=== PATIENT | male | born 1990 | race African-American/Black ===

== ENCOUNTER 2016-03-17 09:49 | Emergency (ER) | payer SELFPAY ==
[~2016-03-17] VITALS: Ht 193 cm; Wt 74.4 kg
[~2016-03-17 09:49] MED LIST: ACETAMINOPHEN-1 EAC1 PO; ALBUTEROL SULF8.5 GM INH; ALBUTEROL2.5 MG/3 M INH; AMOXICILLIN500 MG PO; AZITHROMYCIN250 MG ORAL; CYCLOBENZAPRINE10 MG ORAL; IBUPROFEN600 MG ORAL; NORCO 10/3251 EA ORAL; NORCO 5-325 TA1 EACH ORAL; PHENAZOPYRIDIN100 MG ORAL; PREDNISONE20 MG ORAL; PROAIR HFA8.5 GM INH; PROMETHAZINE-C118 M1 ORAL; ZITHROMAX250 MG ORAL
[2016-03-17] MEDS ORDERED: NKM (10:01)
[2016-03-17] MEDS ORDERED: Norco 5mg/325mg tab PO ONE (10:15)
--- NOTE | 2016-03-17 11:12 | Diagnostic Imaging Report ---
Indication: pain Findings: 3 views of the right hand were obtained. There is a fracture of the distal radius in the area of the radial styloid. The fracture extends through the metaphyseal region. Fracture is intra-articular and slightly comminuted. There is a post fracture deformity of the fifth metacarpal but this appears old. Impression: Nondisplaced comminuted intra-articular fracture of the distal radius.
[2016-03-17 11:17] VITALS: BP 124/73
[2016-03-17] MEDS ORDERED: NORCO 5-325 TA1 EACH ORAL (11:17)
[2016-03-17] MEDS ORDERED: IBUPROFEN600 MG ORAL (11:17)
[2016-03-17 11:19] VITALS: BP 124/73
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
--- NOTE | 2016-03-20 08:29 | Diagnostic Imaging Report ---
Indication: Pain Findings: 3 views of the right wrist were obtained. There is acute intra-articular fracture of the distal radius.. The fracture is primarily transverse but portion of the fracture extends into the radioscaphoid joint. There is also a distal radial ulnar joint involvement. There is a fracture of the ulnar styloid as well. Impression: Comminuted fracture of the distal radius
== END 2016-03-17 12:19 | disposition home or self-care (01) ==
LOC: EMR 10:36
DX: S52.571A Other intraarticular fracture of lower end of right radius, initial encounter for closed fracture (principal); W22.8XXA Striking against or struck by other objects, initial encounter; Y92.9 Unspecified place or not applicable; J45.909 Unspecified asthma, uncomplicated
CPT/HCPCS: 29125

== ENCOUNTER 2016-04-12 11:51 | Emergency (ER) | payer SELFPAY ==
[~2016-04-12] VITALS: Ht 193 cm; Wt 74.8 kg
[~2016-04-12 11:51] MED LIST changes: +NKM
[2016-04-12 11:59] VITALS: BP 128/71
--- NOTE | 2016-04-12 12:24 | Emergency Room Report ---
History of Present Illness General Chief Complaint: Pain Source: Patient Present Illness HPI The patient is a 25-year-old male presenting for pain of the right wrist and penile discharge. The patient was seen in this emergency department 3 weeks prior for a fracture of the right distal radius and ulna. The patient was placed in a volar splint and told to followup with orthopedics as soon as possible. The patient states that he has not followed up with orthopedics because he is afraid of surgery. The patient states that the splint became wet two days prior and warped. The patient states the pain has decreased and is now a 5/10 dull ache. Pain worse with movement of the wrist. The patient denies numbness or tingling of the wrist or hand. The patient also presents for one-day of penile discharge. The patient states that he noticed a white to yellow thick discharge which occurred once last night. Patient states she has not been sexually active recently. The patient denies dysuria, hematuria, testicular pain, abdominal pain, nausea, vomiting, fever, chills Allergies: Coded Allergies: No Known Allergies (Unverified , 09/20/15) Patient History Past Medical History: see triage record Pertinent Family History: none Reviewed Nursing Documentation: PMH: Agreed, PSxH: Agreed Nursing Documentation-PMH Past Medical History: No Stated History Hx Asthma: Yes Review of Systems All Other Systems: negative except mentioned in HPI Physical Exam Vital Signs Date Time Temp Pulse Resp B/P Pulse Ox O2 Delivery O2 Flow Rate FiO2 04/12/16 11:59 97.7 81 14 128/71 95 Room Air Sp02 EP Interpretation: reviewed, normal General Appearance: no apparent distress, alert, GCS 15, non-toxic Head: normocephalic, atraumatic Eyes: bilateral eye PERRL, bilateral eye normal inspection Respiratory: chest non-tender, lungs clear, normal breath sounds, speaking full sentences Cardiovascular #1: regular rate, rhythm, no edema Gastrointestinal: normal bowel sounds, non tender, soft, non-distended, no guarding, no rebound Rectal: deferred Genitourinary: normal inspection, no CVA tenderness, penis normal, scrotum normal Musculoskeletal: back normal, digits/nails normal, gait/station normal, decreased range of motion - R wrist, swelling - Mild edema over wrist, tender - TTP over distal radius/ulna Neurologic: alert, oriented x3, responsive, motor strength/tone normal, sensory intact, speech normal Psychiatric: judgement/insight normal, memory normal, mood/affect normal, no suicidal/homicidal ideation Skin: normal color, no rash, warm/dry, well hydrated Lymphatic: no adenopathy Procedures Splinting Splinting : Consent: Verbal Location: R wrist Pre-Made Type: metal Splint: volar Pre-Proc Neuro Vasc Exam: normal Post-Proc Neuro Vasc Exam: normal Patient Tolerated: Well Complications: None Medical Decision Making PA Attestation Dr. Meyers is my supervising physician. Patient management was discussed with my supervising physician Diagnostic Impression: Primary Impression: Wrist fracture ER Course 25-year-old male presenting for re splinting of right wrist fracture and possible STD. Ddx considered include but not limited to sprain/strain, fracture, contusion, compartment syndrome, cellultitis Differential diagnosis considered but not limited to: UTI, pyelonephritis, STD PE: Vitals within normal limits. No apparent distress Right wrist: Limited active range of motion. Minimal edema primarily over lateral wrist. Full active range of motion of fingers. Sensation intact to light touch. Skin intact. no erythema. No ecchymosis. Splint applied to R arm/wrist. UA unremarkable. Patient will be NV'ed home and will FU with orthopedics. Laboratory Tests Test 04/12/16 12:35 Urine Color Yellow Urine Appearance Clear Urine pH 5.0 (4.5-8.0) Urine Specific [place] 1.020 (1.005-1.035) Urine Protein Negative (NEGATIVE) Urine Glucose (UA) Negative (NEGATIVE) Urine Ketones Negative (NEGATIVE) Urine Occult Blood Negative (NEGATIVE) Urine Nitrite Negative (NEGATIVE) Urine Bilirubin Negative (NEGATIVE) Urine Urobilinogen Normal MG/DL (0.0-1.0) Urine Leukocyte Esterase Negative (NEGATIVE) Lab Results Impression No signs of infection Last Vital Signs Date Time Temp Pulse Resp B/P Pulse Ox O2 Delivery O2 Flow Rate FiO2 04/12/16 11:59 97.7 81 14 128/71 95 Room Air Status: improved Disposition: HOME, SELF-CARE Condition: Improved IAM GONZALEZ Apr 12, 2016 12:24
[2016-04-12 12:50] LABS: APPEARANCE,URINE CLEAR; KETONES,URINE NEGATIVE (NEGATIVE); LEUKOCYTE ESTERASE ,URINE NEGATIVE (NEGATIVE); NITRITE,URINE NEGATIVE (NEGATIVE); PROTEIN,URINE NEGATIVE (NEGATIVE); UROBILINOGEN,URINE NORMAL MG/DL (0.0-1.0)
[2016-04-12 13:05] VITALS: BP 117/75
== END 2016-04-12 13:05 | disposition home or self-care (01) ==
LOC: EMR 12:25
DX: S62.101D Fracture of unspecified carpal bone, right wrist, subsequent encounter for fracture with routine healing (principal); J45.909 Unspecified asthma, uncomplicated
CPT/HCPCS: 29260; 81003; 99283

== ENCOUNTER 2018-06-10 01:02 | Emergency (ER) | payer BC, MEDICAID ==
[~2018-06-10] VITALS: Ht 190.5 cm; Wt 79.4 kg
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
== END 2018-06-10 02:00 | disposition left against medical advice (07) ==
LOC: EMR 01:49
DX: S89.92XA Unspecified injury of left lower leg, initial encounter (principal); J45.909 Unspecified asthma, uncomplicated; Y09 Assault by unspecified means
CPT/HCPCS: 99281

== ENCOUNTER 2018-12-23 21:52 | Emergency (ER) | payer BC, MEDICAID, OTHER ==
[~2018-12-23] VITALS: Ht 195.6 cm; Wt 70.8 kg
[2018-12-23 22:15] VITALS: BP 123/80
--- NOTE | 2018-12-23 22:16 | NUR ---
ED Nurse Note: Patient walked in to ER due to spider bites. Stated that saw spider. AAOx4, VSS at this time, skin is dry warm to touch.
[2018-12-23] MEDS ORDERED: Bactrim-DS 1 tab ORAL ONE (22:30)
[2018-12-23] MEDS ORDERED: IBUPROFEN600 MG ORAL (22:52)
[2018-12-23] MEDS ORDERED: BACTRIM DS TAB1 EAC1 ORAL (22:52)
[2018-12-23] MEDS ORDERED: MUPIROCIN22 GM TOPIC (22:52)
--- NOTE | 2018-12-23 22:53 | Emergency Room Report ---
History of Present Illness General Chief Complaint: Skin Rash/Abscess Source: Patient, Medical Record Present Illness HPI This is a 28-year-old male with no past medical history. He presents with chief complaint of a spider bite to his lip. Onset for last couple days. He noticed some swelling today and squeeze some pus out. Now it was swollen. Throbbing pain. No fever chills but no nausea no vomiting. Pain is 8 out of 10. Worse with palpation. Allergies: Coded Allergies: No Known Allergies (Unverified , 09/20/15) Patient History Past Medical History: see triage record, old chart reviewed Past Surgical History: none Pertinent Family History: none Social History: Denies: smoking Immunizations: other Reviewed Nursing Documentation: PMH: Agreed; PSxH: Agreed Nursing Documentation-PMH Past Medical History: No History, Except For Hx Asthma: Yes Review of Systems Eye: Denies: eye pain, blurred vision ENT: Denies: ear pain, nose congestion, throat swelling Respiratory: Denies: cough, shortness of breath Cardiovascular: Denies: chest pain, palpitations Gastrointestinal: Denies: abdominal pain, diarrhea, nausea, vomiting Musculoskeletal: Denies: back pain, joint pain Skin: Denies: rash Neurological: Denies: headache, numbness Endocrine: Denies: increased thirst, increased urine Hematologic/Lymphatic: Denies: easy bruising All Other Systems: negative except mentioned in HPI Physical Exam Vital Signs Date Time Temp Pulse Resp B/P (MAP) Pulse Ox O2 Delivery O2 Flow Rate FiO2 12/23/18 22:09 98.1 75 18 123/80 (94) 99 Room Air Vitals normal Sp02 EP Interpretation: reviewed, normal General Appearance: well appearing, no apparent distress, alert Head: normocephalic, atraumatic Eyes: bilateral eye PERRL, bilateral eye EOMI ENT: hearing grossly normal, normal pharynx, other - Lip: On the left lip at the edge with the lower lip there is a indurated area of 1 cm. Neck: full range of motion, supple, no meningismus Respiratory: chest non-tender, lungs clear, normal breath sounds Cardiovascular #1: regular rate, rhythm, no murmur Gastrointestinal: normal bowel sounds, non tender, no mass, no organomegaly, no bruit, non-distended Musculoskeletal: back normal, gait/station normal, normal range of motion Psychiatric: mood/affect normal Procedures Incision and Drainage Incision and Drainage : Consent: Verbal Site: Lip Blade Size: 11 I & D Procedure: betadine prep Wound Location: face Anesthesia: 1% Lidocaine Volume Anesthetic (ccs): 1 Patient Tolerated: Well Complications: None Progress A small incision after local anesthetic. There was small to moderate amount of pus expressed. Patient tolerated procedure without any problem. Medical Decision Making Diagnostic Impression: Primary Impression: Lip abscess ER Course this patient presents with an abscess. No deep infection. No evidence of any necrotizing fasciitis. Last Vital Signs Date Time Temp Pulse Resp B/P (MAP) Pulse Ox O2 Delivery O2 Flow Rate FiO2 12/23/18 22:15 98.1 18 123/80 99 Room Air 12/23/18 22:09 75 Status: improved Disposition: HOME, SELF-CARE Condition: Stable Scripts Mupirocin* (MUPIROCIN*) 22 Gm Oint...g. 1 APPLIC TOPIC THREE TIMES A DAY, #22 GM Prov: Obed Betancourt MD 12/23/18 Ibuprofen* (MOTRIN*) 600 Mg Tablet 600 MG ORAL THREE TIMES A DAY, #30 TAB 0 Refills Prov: Obed Betancourt MD 12/23/18 Trimethoprim/Sulfamethoxazole 160/800* (BACTRIM DS TABLET*) 1 Each Tablet 1 TAB ORAL Q12H, #14 TAB 0 Refills Prov: Obed Betancourt MD 12/23/18 Referrals: NOT CHOSEN IPA/,REFERRING (PCP) Patient Instructions: Abscess Additional Instructions: Keep wound clean. Clean first with hydroperoxide and apply antibiotic ointment. Follow-up with your doctor in 2 to 3 days for recheck. Return if worse. Obed Betancourt MD Dec 23, 2018 22:53
[2018-12-23 22:58] VITALS: BP 123/80
--- NOTE | 2018-12-23 22:59 | NUR ---
ED Nurse Note: Pt cleared by health care Provider for discharge. DC instructions/prescription was given and explained to pt and verbalized understanding of teachings. All medical deviecs such as ID band removed. Pt is AAO x4, ambulatory and left with all personal belongings.
[2018-12-23] MEDS ORDERED: HYDROcodone/Acetamin 5/325 tab ORAL ONE (23:00)
== END 2018-12-23 23:00 | disposition home or self-care (01) ==
LOC: EMR 22:45
DX: L02.01 Cutaneous abscess of face (principal); J45.909 Unspecified asthma, uncomplicated
CPT/HCPCS: 10060; Z7502; 99282

== ENCOUNTER 2019-06-28 10:14 | Emergency (ER) | payer MEDICAID ==
[~2019-06-28] VITALS: Ht 193 cm; Wt 68.0 kg
[~2019-06-28 10:14] MED LIST changes: +BACTRIM DS TAB1 EAC1 ORAL; +MUPIROCIN22 GM TOPIC
[2019-06-28] MEDS ORDERED: HYDROcodone/Acetamin 7.5/325 tab ORAL ONE (10:30)
--- NOTE | 2019-06-28 10:30 | NUR ---
ED Nurse Note: Pt ambulated to ED d/t LT hip pain extending on knee d/t fall at home today at 4am. Pt is AOx4, calm and cooperative. VSS, on RA, afebrile on triage. noted with hx of multiple ortho surgeries as verbalized by pt. Placed on bed; maintained affected area elevated.
--- NOTE | 2019-06-28 10:35 | Emergency Room Report ---
History of Present Illness General Chief Complaint: Pain Source: Patient Present Illness HPI Disclaimer: Please note that this report is being documented using DRAGON technology. This can lead to erroneous entry secondary to incorrect interpretation by the dictating instrument. HPI: 28-year-old male presents for evaluation of left hip and knee pain. Yesterday he was carrying some heavy groceries and fell onto his left side with his leg trapped underneath him. He was unable to bear weight but tried to sleep it off overnight. Today noted worsening pain and swelling around his left knee as well as pain in his left hip. Denies numbness or tingling. Denies injury or pain in the ankle. Still unable to bear weight. Did not take any medications prior to arrival. No prior history of injury. PMH: None reported PSH: Right hand repair Allergies: Denied Social Hx: Denies drug or alcohol abuse Allergies: Coded Allergies: No Known Allergies (Unverified , 09/20/15) COVID-19 Screening Contact w/high risk pt: No Recent Travel to affected area: No Experienced COVID-19 symptoms?: No Nursing Documentation-PMH Past Medical History: No Stated History Hx Asthma: Yes Review of Systems All Other Systems: negative except mentioned in HPI Physical Exam Vital Signs Date Time Temp Pulse Resp B/P (MAP) Pulse Ox O2 Delivery O2 Flow Rate FiO2 06/28/19 10:28 98.4 96 18 108/62 (77) 97 Room Air General: Awake and alert, no acute distress HEENT: NC/AT. EOMI. Resp: Normal work of breathing Skin: Intact. No abrasions, laceration or rash over the exposed skin MSK: Normal tone and bulk. Moving all extremities. Tenderness palpation on AP and lateral compression of the left hip. Joint appears to be stable. There is tenderness and edema around the medial aspect of the left knee. Patella is anatomic position and nontender. Difficulty with flexion extension as well as passive range of motion testing in the left lower extremity. No tenderness around the ankles or swelling. Neuro: Awake and alert. Mentating appropriately Medical Decision Making Diagnostic Impression: Primary Impression: Contusion, hip Additional Impression: Knee contusion ER Course 28-year-old male presents for evaluation of left hip and knee pain. Concern for fracture and possible dislocation x-rays of the hip and pelvis as well as the knee were obtained. No evidence of fracture or dislocation or other significant abnormalities are noted. The patient was given crutches and an Frank wrap for the knee. Will continue NSAID therapy at home. Will follow-up with orthopedic surgery. Discussed reasons to return to the emergency department. He understands and agrees with this treatment plan. Other X-Ray Diagnostic Results Other X-Ray Diagnostic Results #1: X-Ray ordered: Left hip and pelvis # of Views/Limited Vs Complete: Complete Indication: Pain EP Interpretation: Yes Interpretation: no dislocation, no soft tissue swelling, no fractures Impression: No acute disease Electronically Signed by: Electronically signed by Dr. Carlito Cristina Other X-Ray Diagnostic Results #2: X-Ray ordered: Left knee # of Views/Limited Vs Complete: Complete Indication: Pain EP Interpretation: Yes Interpretation: no dislocation, no soft tissue swelling, no fractures Impression: No acute disease Electronically Signed by: Electronically signed by Dr. Carlito Cristina Last Vital Signs Date Time Temp Pulse Resp B/P (MAP) Pulse Ox O2 Delivery O2 Flow Rate FiO2 06/28/19 10:28 98.4 96 18 108/62 (77) 97 Room Air Disposition: HOME, SELF-CARE Condition: Stable Scripts Ibuprofen* (MOTRIN*) 600 Mg Tablet 600 MG ORAL Q6H PRN for For Pain, #30 TAB 0 Refills Prov: Carlito Cristina MD 06/28/19 Referrals: NOT CHOSEN [facility]/,REFERRING (PCP) Carlito Cristina MD Jun 28, 2019 10:35
[2019-06-28 10:39] VITALS: BP 108/62
--- NOTE | 2019-06-28 10:42 | NUR ---
ED Nurse Note: Pt went to x-ray accompanied by tech.
[2019-06-28] MEDS ORDERED: IBUPROFEN600 M1 ORAL (11:39)
--- NOTE | 2019-06-28 12:19 | NUR ---
ED Nurse Note: pt's Jennifer martin,
[2019-06-28 12:40] VITALS: BP 108/62
--- NOTE | 2019-06-28 12:40 | NUR ---
ER DISCHARGE NOTE: Patient is cleared to be discharged per ERMD, pt is aox4, on room air, with stable vital signs. pt was given dc and prescription instructions, pt was able to verbalize understanding, pt id band removed. pt is able to ambulate with steady gait. pt took all belongings.
--- NOTE | 2019-06-28 12:51 | Diagnostic Imaging Report ---
Indication: Knee injury, pain, one day status post fall Technique: 3 views of the left knee Comparison: None Findings: No acute fractures or dislocations. No suprapatellar effusion. Joint spaces are preserved Impression: Negative
--- NOTE | 2019-06-28 12:53 | Diagnostic Imaging Report ---
Indication: Pain, status post fall times one day Technique: One view of the pelvis, 2 views of the left hip Comparison: none Findings: The top of the right iliac bone is cut off exam. Per technologist, patient did not wish to have the exam repeated. No acute fractures. No dislocations. Joint spaces are preserved. Impression: Negative
== END 2019-06-28 12:40 | disposition home or self-care (01) ==
LOC: EMR 10:28
DX: S70.02XA Contusion of left hip, initial encounter (principal); S80.02XA Contusion of left knee, initial encounter; W19.XXXA Unspecified fall, initial encounter; Y92.9 Unspecified place or not applicable
CPT/HCPCS: 73502; 73562; Z7502; 99284

== ENCOUNTER 2019-08-17 23:02 | Emergency (ER) | payer MEDICAID ==
[~2019-08-17] VITALS: Ht 193 cm; Wt 63.5 kg
[~2019-08-17 23:02] MED LIST changes: +IBUPROFEN600 M1 ORAL
[2019-08-17] MEDS ORDERED: IBUPROFEN600 M1 ORAL (23:21)
[2019-08-17] MEDS ORDERED: HYDROCODON-ACE1 EA15 ORAL (23:21)
--- NOTE | 2019-08-17 23:22 | Emergency Room Report ---
History of Present Illness General Chief Complaint: Lower Extremity Injury Source: Patient Present Illness HPI This a 28-year-old male with no past medical history. He presents with chief complaint of left knee pain. This been a chronic problem since June. In June , he try to catch his girlfriend and ended up twisting his left knee. Since then is been hurting. He is seen here for it already. X-ray was negative. Since then is been hurting. Most of it to the medial aspect of the knee. There are still some edema. He cannot fully bend it. No new trauma. No nausea no vomiting he does not take anything for it. Did not see orthopedic doctor or primary care doctor. Pain is 8 out of 10. Worse with walking. Worse with cytocide movement. Better with rest. Allergies: Coded Allergies: No Known Allergies (Unverified , 09/20/15) COVID-19 Screening Contact w/high risk pt: No Recent Travel to affected area: No Experienced COVID-19 symptoms?: No COVID-19 Testing performed [employer]: No Patient History Past Medical History: see triage record, old chart reviewed Past Surgical History: none Pertinent Family History: none Social History: Denies: smoking Immunizations: other Reviewed Nursing Documentation: PMH: Agreed; PSxH: Agreed Nursing Documentation-PMH Hx Asthma: Yes Review of Systems Eye: Denies: eye pain, blurred vision ENT: Denies: ear pain, nose congestion, throat swelling Respiratory: Denies: cough, shortness of breath Cardiovascular: Denies: chest pain, palpitations Gastrointestinal: Denies: abdominal pain, diarrhea, nausea, vomiting Musculoskeletal: Reports: joint pain; Denies: back pain Skin: Denies: rash Neurological: Denies: headache, numbness Endocrine: Denies: increased thirst, increased urine Hematologic/Lymphatic: Denies: easy bruising All Other Systems: negative except mentioned in HPI Physical Exam Vital Signs Date Time Temp Pulse Resp B/P (MAP) Pulse Ox O2 Delivery O2 Flow Rate FiO2 08/17/19 23:08 98.2 86 16 109/67 (81) 97 Room Air Vitals normal Sp02 EP Interpretation: reviewed, normal General Appearance: well appearing, no apparent distress, alert Head: normocephalic, atraumatic Eyes: bilateral eye PERRL, bilateral eye EOMI ENT: hearing grossly normal, normal pharynx Neck: full range of motion, supple, no meningismus Respiratory: chest non-tender, lungs clear, normal breath sounds Cardiovascular #1: regular rate, rhythm, no murmur Gastrointestinal: normal bowel sounds, non tender, no mass, no organomegaly, no bruit, non-distended Musculoskeletal: back normal, normal range of motion, gait/station normal, other - Left knee: Knee is stable. No deformity. No effusion. There is tenderness to the medial collateral ligament. Psychiatric: mood/affect normal Procedures Splinting Splinting : Consent: Verbal Location: Knee, left Pre-Made Type: FRANK wrap Pre-Proc Neuro Vasc Exam: normal Post-Proc Neuro Vasc Exam: normal Patient Tolerated: Well Complications: None Medical Decision Making Diagnostic Impression: Primary Impression: MCL sprain of left knee Qualified Codes: S83.412A - Sprain of medial collateral ligament of left knee , initial encounter ER Course Patient with left knee pain. Most likely a medial collateral or medial meniscus injury. This is a chronic problem. He will probably need an MRI and orthopedic referral. In the meantime, we will put him on anti-inflammatory and place Frank wrap and crutches. Last Vital Signs Date Time Temp Pulse Resp B/P (MAP) Pulse Ox O2 Delivery O2 Flow Rate FiO2 08/17/19 23:08 98.2 86 16 109/67 (81) 97 Room Air Status: improved Disposition: HOME, SELF-CARE Condition: Stable Scripts Ibuprofen* (MOTRIN*) 600 Mg Tablet 600 MG ORAL Q6HR, #20 TAB Prov: Obed Betancourt MD 08/17/19 Hydrocodone/Acetaminophen 5-325* (HYDROCODONE/ACETAMINOPHEN 5-325*) 1 Each Tablet 1 TAB ORAL Q6H PRN for For Pain, #15 TAB 0 Refills Prov: Obed Betancourt MD 08/17/19 Referrals: NOT CHOSEN IPA/,REFERRING (PCP) Patient Instructions: Ankle Sprain Additional Instructions: Ice pack to the area. Use crutches as needed. You probably have an MCL or medial meniscus injury. You will need an outpatient MRI and orthopedic referral. You can see your primary care doctor for this. Obed Betancourt MD Aug 17, 2019 23:22
[2019-08-17 23:30] VITALS: BP 109/67
== END 2019-08-17 23:30 | disposition home or self-care (01) ==
LOC: EMR 23:14
DX: S83.412A Sprain of medial collateral ligament of left knee, initial encounter (principal); X50.1XXA Overexertion from prolonged static or awkward postures, initial encounter
CPT/HCPCS: 99282